=== PATIENT | female | born 1990 | race Caucasian/White ===

== ENCOUNTER 2016-07-09 16:50 | Observation (INO) | payer BC ==
[2016-07-09 17:59] VITALS: O2SAT 99
[2016-07-09 19:19] VITALS: BP 113/75; PULSE 88
== END 2016-07-09 18:45 | disposition home or self-care (01) ==
LOC: UNDOADMOB 16:50 → OB 16:50 → UNDODISOB 18:45
PROVIDERS: ADMIT Family Medicine; ATTEND Family Medicine
DX: Z34.03 Encounter for supervision of normal first pregnancy, third trimester (principal)
CPT/HCPCS: G0378

== ENCOUNTER 2016-07-11 10:06 | Observation (INO) | payer BC ==
[2016-07-11 10:33] VITALS: BP 108/64; PULSE 82
== END 2016-07-11 11:15 | disposition home or self-care (01) ==
LOC: OB 10:06
PROVIDERS: ADMIT Family Medicine; ATTEND Family Medicine
DX: Z34.02 Encounter for supervision of normal first pregnancy, second trimester (principal)
CPT/HCPCS: G0378

== ENCOUNTER 2016-08-07 21:00 | Observation (INO) | payer BC, SELFPAY ==
[2016-08-07 21:30] LABS: Bacteria FEW /HPF (NEGATIVE); COMPLETE URINE MICROSCOPIC? YES; Collection Type CLEAN CATCH; Epithelial Cells FEW /HPF (FEW); WBC 15-25 /HPF (0-5)
[2016-08-07] MEDS ORDERED: Rocephin 1000 MG INJ IM ONE (23:09)
[2016-08-07] MEDS ORDERED: XYLOCAINE 1% HCL 20 ML MDV IJ ONE (23:10)
[2016-08-07] MEDS ORDERED: Rocephin 1000 MG INJ ONE (23:25)
[2016-08-08 00:48] VITALS: BP 106/65; PULSE 90
== END 2016-08-08 00:15 | disposition home or self-care (01) ==
LOC: OB 21:00
PROVIDERS: ADMIT Family Medicine; ATTEND Family Medicine
DX: Z34.03 Encounter for supervision of normal first pregnancy, third trimester (principal)
CPT/HCPCS: 80307; 81000; 87086; 96372; G0378; J0696

== ENCOUNTER 2016-08-18 21:02 | Observation (INO) | payer BC, SELFPAY ==
[2016-08-18 21:50] LABS: Collection Type CLEAN CATCH
[2016-08-18 21:51] LABS: Bacteria FEW /HPF (NEGATIVE); COMPLETE URINE MICROSCOPIC? YES; Epithelial Cells FEW /HPF (FEW); Mucus SLIGHT /HPF (NEGATIVE)
[2016-08-19 01:43] VITALS: BP 107/70; PULSE 93
== END 2016-08-19 00:10 | disposition home or self-care (01) ==
LOC: OB 21:02
PROVIDERS: ADMIT Family Medicine; ATTEND Family Medicine
DX: Z34.83 Encounter for supervision of other normal pregnancy, third trimester (principal)
CPT/HCPCS: 80307; 81000; 87086; G0378

== ENCOUNTER 2016-09-01 22:03 | Observation (INO) | payer BC, SELFPAY ==
[2016-09-02 00:40] VITALS: BP 114/74; PULSE 80
== END 2016-09-01 23:59 | disposition home or self-care (01) ==
LOC: OB 22:03
PROVIDERS: ADMIT Family Medicine; ATTEND Family Medicine
DX: Z34.03 Encounter for supervision of normal first pregnancy, third trimester (principal)
CPT/HCPCS: 80307; G0378

== ENCOUNTER 2016-09-04 16:07 | Observation (INO) | payer BC, SELFPAY ==
[2016-09-04 16:51] VITALS: BP 128/82; PULSE 95
== END 2016-09-04 17:12 | disposition home or self-care (01) ==
LOC: OB 16:07
PROVIDERS: ADMIT Family Medicine; ATTEND Family Medicine
DX: Z34.03 Encounter for supervision of normal first pregnancy, third trimester (principal)
CPT/HCPCS: 59025; G0378

== ENCOUNTER 2016-09-17 19:30 | Observation (INO) | payer BC, SELFPAY ==
[2016-09-17 21:58] VITALS: BP 117/79; PULSE 98
== END 2016-09-17 21:10 | disposition home or self-care (01) ==
LOC: OB 19:30
PROVIDERS: ADMIT Family Medicine; ATTEND Family Medicine
DX: Z34.03 Encounter for supervision of normal first pregnancy, third trimester (principal)
CPT/HCPCS: G0378

== ENCOUNTER 2016-09-20 18:01 | Inpatient (IN) | payer BC, SELFPAY ==
[2016-09-20] MEDS ORDERED: Zofran 4 MG/2 ML VIAL IV PRN (19:33)
[2016-09-20 20:00] LABS: BASOPHIL % 0.1 % (0.0-0.4); Eosinophil % 0.5 % (0.00-5.0); Granulocytes % 75.4 % (36.0-66.0); Lymphocytes % 15.3 % (24.0-44.0); Mean Cell Volume 93.5 fl (78-100); Mean Platelet Volume 10.4 fl (6-9.5); Monocytes % 8.7 % (0.0-12.0); Platelet Count 259 K/mm3 (150-450); Red Blood Count 3.98 M/mm3 (4.1-5.4); Red Cell Distribution Width 13.7 % (11.5-14.0); White Blood Count 12.5 K/mm3 (4.0-10.5)
[2016-09-20] MEDS ORDERED: BRETHINE 1 MG/ML SQ PRN (20:03)
[2016-09-20 20:06] LABS: Mean Corpuscular Hemoglobin 31.1 pg (26-32)
[2016-09-20 20:53] VITALS: O2SAT 96
[2016-09-20] MEDS ORDERED: Cervidil 10 MG VAG SCH (22:00)
[2016-09-21] MEDS: TYLENOL EXTRA STRENGTH 500 MG PO PRN (01:08)
[2016-09-21] MEDS: Lactated Ringers 1,000 ML IV SCH ×2 (06:51→14:33)
[2016-09-21] MEDS ORDERED: Ephedrine Sulfate 50 MG/ML IV PRN (07:19)
[2016-09-21] MEDS ORDERED: OB EPIDURAL NAROPIN/SUFENTANIL IN NACL EPIDURAL PRN (07:19)
[2016-09-21] MEDS ORDERED: Lactated Ringers 1,000 ML IV ONE (07:19)
[2016-09-21] MEDS ORDERED: XYLOCAINE 1% HCL 20 ML MDV IJ PRN (07:20)
[2016-09-21] MEDS: PITOCIN 30 UNITS/ LR 500 ML 500 ML IV SCH ×2 (09:37→17:25)
[2016-09-21] MEDS ORDERED: Pepcid 20 MG PO ONE (09:37)
[2016-09-21] MEDS ORDERED: Mylicon 80MG PO PRN (17:11)
[2016-09-21] MEDS ORDERED: TUCKS TP PRN (17:11)
[2016-09-21] MEDS ORDERED: CORTISONE 1% CREAM TP PRN (17:11)
[2016-09-21] MEDS ORDERED: Tylenol #3 Tablet PO PRN (17:11)
[2016-09-21] MEDS ORDERED: Ambien 10 MG PO PRN (17:11)
[2016-09-21] MEDS ORDERED: Dermoplast Spray TP PRN (17:11)
[2016-09-21] MEDS ORDERED: Anucort-HC SUPPOSITORY PR PRN (17:11)
[2016-09-21] MEDS ORDERED: LANSINOH 40 GM TOP PRN (17:11)
[2016-09-21] MEDS ORDERED: TYLENOL EXTRA STRENGTH 500 MG PO PRN (17:11)
[2016-09-21] MEDS ORDERED: Dulcolax 10 MG SUPP PR PRN (17:11)
[2016-09-21] MEDS: MOTRIN 400 MG PO PRN (20:28)
[2016-09-21] MEDS: Colace 100 MG PO SCH (20:47)
[2016-09-22] MEDS: TYLENOL EXTRA STRENGTH 500 MG PO PRN (01:01)
[2016-09-22 05:24] LABS: Mean Cell Volume 94.4 fl (78-100); Mean Platelet Volume 10.5 fl (6-9.5); Platelet Count 225 K/mm3 (150-450); Red Blood Count 3.24 M/mm3 (4.1-5.4); Red Cell Distribution Width 13.9 % (11.5-14.0); White Blood Count 15.2 K/mm3 (4.0-10.5)
[2016-09-22 05:25] LABS: Mean Corpuscular Hemoglobin 31.1 pg (26-32)
[2016-09-22 06:05] LABS: BAND 2 % (0.0-2.0); Total Cells Counted 100
[2016-09-22 06:07] LABS: Platelet Estimate NORMAL (NORMAL)
[2016-09-22 06:08] LABS: Toxic Granulation 1+
[2016-09-22] MEDS: MOTRIN 400 MG PO PRN ×2 (09:32→19:30)
[2016-09-22] MEDS: FERREX 150 PO SCH (09:32)
[2016-09-22] MEDS: Colace 100 MG PO SCH ×2 (09:32→21:36)
[2016-09-23] MEDS: Colace 100 MG PO SCH (08:03)
[2016-09-23] MEDS: FERREX 150 PO SCH (08:03)
[2016-09-23] MEDS: MOTRIN 400 MG PO PRN (08:03)
[2016-09-23 08:26] VITALS: BP 121/80; PULSE 94
[2016-09-23] MEDS: TYLENOL EXTRA STRENGTH 500 MG PO PRN (16:54)
== END 2016-09-23 18:55 | disposition home or self-care (01) | DRG 775 ==
LOC: OB 18:01 → OBSVTOIN 09-21 06:39
PROVIDERS: ADMIT Family Medicine; ATTEND Family Medicine
PROC: 10E0XZZ Delivery of Products of Conception, External Approach (ICD-10-PCS; principal; 2016-09-21)
PROC: 0KQM0ZZ Repair Perineum Muscle, Open Approach (ICD-10-PCS; 2016-09-21)
DX: O70.1 Second degree perineal laceration during delivery (principal); Z37.0 Single live birth; Z3A.39 39 weeks gestation of pregnancy; D64.9 Anemia, unspecified
CPT/HCPCS: 01967; 36415; 80307; 85025; 87086; G0378; J2590; J2795; A9270-GY

== ENCOUNTER 2018-02-02 15:24 | Emergency (ER) | payer BC ==
[2018-02-02 15:43] VITALS: O2SAT 98
--- NOTE | 2018-02-02 16:20 | ERPHSYRPT ---
- History of Present Illness Time Seen by Provider: 02/02/18 16:11 Source: patient Exam Limitations: no limitations Patient Subjective Stated Complaint: here for sorethroat last night, runny nose , no abd pain or cramping Triage Nursing Assessment: pt alert, resp easy,skin w/d/p. no cough , took tylenol.pt threw up blood today bright red. but pt states she thinks its from throat Physician History: 28-year-old white female who states she is 2 para 126 weeks estimated gestational age. Arrives with complaint of a sore throat symptoms since last night she states she vomited one time no fevers she denies abdominal pain she denies urinary symptoms she has no back pain she has had a runny nose. Past medical history negative. Past surgical history negative. Social history patient denies tobacco alcohol or illicit drug use. Timing/Duration: today Severity: moderate Modifying Factors: Improves With: nothing Associated Symptoms: vomiting (x1), No nausea, No abdominal pain, No shortness of breath, No heartburn, No diaphoresis, No cough, No chills, No chest pain, No fever, No headaches, No loss of appetite, No malaise, No rash, No syncope, No seizure, No weakness Allergies/Adverse Reactions: No Known Drug Allergies Allergy (Verified 02/02/18 15:43) Home Medications: Vits W-Ca,Fe,FA(<1Mg) [] 1 each PO DAILY 04/12/16 [History] Verapamil HCl [Verapamil ER] 120 mg DAILY 02/02/18 [History] Hx Tetanus, Diphtheria Vaccination/Date Given: Yes Hx Influenza Vaccination/Date Given: No Hx Pneumococcal Vaccination/Date Given: No Immunizations Up to Date: Yes - Review of Systems Constitutional: No Fever, No Chills Eyes: No Symptoms Ears, Nose, & Throat: Throat Pain, Other (patient states she spit up a little blood thinks it came from her throat), No Ear Pain, No Ear Discharge, No Hearing Changes, No Tinnitus, No Nose Pain, No Nose Congestion, No Nose Discharge, No Sinus Drainage, No Epistaxis, No Mouth Pain, No Mouth Swelling, No Loose Teeth, No Throat Swelling, No Hoarse, No Painful Swallowing, No Snoring , No Stridor Cardiac: No Chest Pain, No Edema, No Syncope Abdominal/Gastrointestinal: No Symptoms, Vomiting (vomited times one), No Abdominal Pain, No Nausea, No Diarrhea, No Hematemesis Genitourinary Symptoms: (26 weeks ), No Dysuria Musculoskeletal: No Back Pain, No Neck Pain Skin: No Rash Neurological: No Dizziness, No Focal Weakness, No Sensory Changes Psychological: No Symptoms Endocrine: No Symptoms All Other Systems: Reviewed and Negative - Past Medical History Pertinent Past Medical History: No - Past Surgical History Past Surgical History: No - Social History Smoking Status: Never smoker Exposure to second hand smoke: No Drug Use: none Patient Lives Alone: No - Female History Hx Last Menstrual Period: august 2017 Hx Now: Yes Expected Date of Delivery: 05/21/18 Gestational Age: 26 - Nursing Vital Signs Nursing Vital Signs: Initial Vital Signs Temperature 98.2 F 02/02/18 15:37 Pulse Rate 95 H 02/02/18 15:37 Respiratory Rate 16 02/02/18 15:37 Blood Pressure 120/82 02/02/18 15:37 O2 Sat by Pulse Oximetry 98 02/02/18 15:37 Pain Scale Pain Intensity 2 - Physical Exam General Appearance: no apparent distress, alert Eye Exam: PERRL/EOMI, eyes nml inspection Ears, Nose, Throat Exam: TMs normal, moist mucous membranes, pharyngeal erythema , No pharynx normal (throat erythematous slight edema to uvula) Neck Exam: normal inspection, non-tender, supple, full range of motion Respiratory Exam: normal breath sounds Cardiovascular Exam: regular rate/rhythm, normal heart sounds, normal peripheral pulses Gastrointestinal/Abdomen Exam: soft, normal bowel sounds, other (ghravid abdomen ), No tenderness, No mass Back Exam: normal inspection, normal range of motion, No CVA tenderness, No vertebral tenderness Extremity Exam: normal inspection, normal range of motion, pelvis stable Neurologic Exam: alert, oriented x 3, cooperative, certified professional ergonomist II-XII nml as tested, normal mood/affect, nml cerebellar function, nml station & gait, sensation nml, No motor deficits Skin Exam: normal color, warm, dry, No rash SpO2 Interpretation: normal (98%) SpO2: 98 Oxygen Delivery: Room Air - Course Nursing assessment & vital signs reviewed: Yes Ordered Tests: Active Orders 24 hr Category Date Time Status Heart Tones-ED STAT Care 02/02/18 15:41 Active IV Insertion STAT Care 02/02/18 15:40 Active Medication Summary Discontinued Medications Generic Name Dose Route Start Last Admin Trade Name Karla PRN Reason Stop Dose Admin Diphenhydramine HCl 50 mg 02/02/18 18:39 Benadryl 25 Mg Capsule PO 02/02/18 18:40 STAT ONE Lab/Rad Data: Laboratory Results 02/02/18 Range/Units 16:20 Group A Strep Antibody NEGATIVE (NEGATIVE) - Progress Progress: improved Progress Note: 02/02/18 18:34 26-year-old white female arrives with complaint of soreness in her throat she states she vomited. On physical examination patient with mild uvular edema mild erythema. Airway is clear. Strep test is negative. Patient is 26 weeks . Will discuss case with Dr. Larios sap functional analyst for the patient's physician Dr. Verdin. Will go ahead and place patient on Benadryl And prednisone - Departure Time of Disposition: 18:36 Departure Disposition: Home Clinical Impression: Sore throat, Uvular edema, incidental 26 weeks EGA Condition: Fair Critical Care Time: No Referrals: NITZA VERDIN [Primary Care Provider] - Additional Instructions: Return home. Plenty of fluids. Benadryl 25-50 mg orally every 6 hours for one to 2 days. Prednisone 40 mg orally daily for 5 days. Follow-up with your family doctor or [facility] physician if problems. Return for acute distress or for severe symptoms. Prescriptions: Prednisone 20 mg [Deltasone 20 mg] 40 mg PO DAILY #10 tablet
[2018-02-02] MEDS ORDERED: BENADRYL 25 MG CAPSULE PO ONE (18:39)
[2018-02-02] MEDS ORDERED: DELTASONE 20 MG PO ONE (18:43)
[2018-02-02] MEDS ORDERED: BENADRYL 25 MG CAPSULE ONE (18:59)
[2018-02-02] MEDS ORDERED: DELTASONE 20 MG ONE (18:59)
[2018-02-02 19:04] VITALS: BP 112/69
[2018-02-02 19:21] VITALS: PULSE 98
== END 2018-02-02 19:21 | disposition home or self-care (01) ==
LOC: ED 15:24
DX: Z33.1 Pregnant state, incidental (principal)
CPT/HCPCS: 36000; 87651; 99284; A9270-GY

== ENCOUNTER 2018-04-02 20:23 | Observation (INO) | payer BC ==
[2018-04-02 20:58] LABS: Appearance CLOUDY (CLEAR); Bilirubin NEGATIVE (NEGATIVE); Blood SMALL Ery/ul (0-5); Glucose NEGATIVE (NEGATIVE); Ketones TRACE (NEGATIVE); Leukocyte Esterase MODERATE (NEGATIVE); Nitrite NEGATIVE (NEGATIVE); Protein,Urine Dip 30 (Negative); Urobilinogen 2 mg/dL (0-1)
[2018-04-02] MEDS ORDERED: Rocephin 1000 MG INJ IM ONE (21:41)
[2018-04-02] MEDS ORDERED: XYLOCAINE 1% HCL 20 ML MDV IJ ONE (21:56)
[2018-04-02] MEDS ORDERED: Rocephin 1000 MG INJ ONE (21:57)
[2018-04-02 23:28] VITALS: BP 103/68; PULSE 92
== END 2018-04-02 22:40 | disposition home or self-care (01) ==
LOC: OB 20:23
PROVIDERS: ADMIT Family Medicine; ATTEND Family Medicine
DX: Z34.83 Encounter for supervision of other normal pregnancy, third trimester (principal)
CPT/HCPCS: 81001; 87086; G0378; J0696

== ENCOUNTER 2018-04-09 12:51 | Observation (INO) | payer BC ==
[2018-04-09 13:32] VITALS: BP 122/62; PULSE 112
[2018-04-09 13:39] LABS: Appearance SLIGHTLY CLOUDY (CLEAR); Bilirubin NEGATIVE (NEGATIVE); Blood NEGATIVE Ery/ul (0-5); Glucose NEGATIVE (NEGATIVE); Ketones NEGATIVE (NEGATIVE); Leukocyte Esterase NEGATIVE (NEGATIVE); Nitrite NEGATIVE (NEGATIVE); Protein,Urine Dip NEGATIVE (Negative); Specific Gravity 1.013 (1.005-1.025); Urobilinogen NEGATIVE mg/dL (0-1)
== END 2018-04-09 14:45 | disposition home or self-care (01) ==
LOC: OB 12:51
PROVIDERS: ADMIT Family Medicine; ATTEND Family Medicine
DX: Z34.83 Encounter for supervision of other normal pregnancy, third trimester (principal)
CPT/HCPCS: 81001; G0378

== ENCOUNTER 2018-04-23 13:09 | Observation (INO) | payer BC ==
[2018-04-23 14:26] LABS: Appearance CLOUDY (CLEAR); Bilirubin NEGATIVE (NEGATIVE); Blood SMALL Ery/ul (0-5); Glucose NEGATIVE (NEGATIVE); Ketones TRACE (NEGATIVE); Leukocyte Esterase MODERATE (NEGATIVE); Nitrite NEGATIVE (NEGATIVE); Protein,Urine Dip 30 (Negative); Specific Gravity 1.013 (1.005-1.025); Urobilinogen NEGATIVE mg/dL (0-1)
[2018-04-23] MEDS ORDERED: Lactated Ringers 1,000 ML IV ONE (14:46)
[2018-04-23 15:42] LABS: BASOPHIL % 0.2 % (0.0-0.4); Basophil (Absolute #) 0.02 (0-0.4); Eosinophil % 0.6 % (0.00-5.0); Eosinophil (Absolute #) 0.06 (0-0.5); Granulocyte Absolute (ANC) 7.03 (1.4-6.9); Granulocytes % 70.5 % (36.0-66.0); Hematocrit 34.3 % (35-47); Hemoglobin 11.3 gm/dl (12.0-16.0); Lymphocyte (Absolute #) 2.09 (1.0-4.6); Mean Cell Volume 94.8 fl (78-100); Mean Corpuscular Hemoglobin 31.2 pg (26-32); Mean Corpuscular Hgb Concent. 32.9 g/dl (32-36); Mean Platelet Volume 10.1 fl (6-9.5); Monocyte (Absolute #) 0.77 (0.0-1.3); Monocytes % 7.7 % (0.0-12.0); Platelet Count 238 K/mm3 (150-450); Red Blood Count 3.62 M/mm3 (4.1-5.4); Red Cell Distribution Width 13.9 % (11.5-14.0)
[2018-04-23 16:16] LABS: ALBUMIN 3.3 g/dL (3.5-5.0); ALKALINE PHOSPHATASE 101 U/L (38-126); ANION GAP 12.4 MEQ/L (5-15); BLOOD UREA NITROGEN 6 mg/dL (7-17); CHLORIDE 106 mmol/L (98-107); Calcium 8.9 mg/dL (8.4-10.2); Carbon Dioxide 21 mmol/L (22-30); Creatinine 1 0.43 mg/dL (0.52-1.04); Glucose 106 mg/dL (74-106); Potassium 3.4 mmol/L (3.5-5.1); SGOT/AST 18 U/L (14-36); SGPT/ALT 14 U/L (0-35); SODIUM 137 mmol/L (137-145); Total Protein 6.5 g/dL (6.3-8.2)
[2018-04-23 16:32] VITALS: BP 102/56; PULSE 93
== END 2018-04-23 17:15 | disposition home or self-care (01) ==
LOC: OB 13:09
PROVIDERS: ADMIT Family Medicine; ATTEND Family Medicine
DX: Z34.83 Encounter for supervision of other normal pregnancy, third trimester (principal)
CPT/HCPCS: 36415; 80053; 81001; 85025; 87077; 87086; 87186; G0378

== ENCOUNTER 2018-04-25 11:06 | Observation (INO) | payer BC ==
[2018-04-25 12:09] LABS: Appearance CLOUDY (CLEAR); Bilirubin NEGATIVE (NEGATIVE); Blood NEGATIVE Ery/ul (0-5); Glucose NEGATIVE (NEGATIVE); Ketones NEGATIVE (NEGATIVE); Leukocyte Esterase MODERATE (NEGATIVE); Nitrite NEGATIVE (NEGATIVE); Protein,Urine Dip NEGATIVE (Negative); Specific Gravity 1.005 (1.005-1.025); Urobilinogen NEGATIVE mg/dL (0-1)
[2018-04-25] MEDS ORDERED: Lactated Ringers 1,000 ML IV ONE (13:07)
[2018-04-25] MEDS ORDERED: ROCEPHIN 1 Gm-D5w 50 ml Bag** 1 G/50 ML IVPB IV SCH (13:30)
[2018-04-25 15:55] VITALS: BP 107/73; PULSE 90
== END 2018-04-25 16:00 | disposition home or self-care (01) ==
LOC: OB 11:06
PROVIDERS: ADMIT Family Medicine; ATTEND Family Medicine
DX: Z34.83 Encounter for supervision of other normal pregnancy, third trimester (principal)
CPT/HCPCS: 81001; 87086; G0378; J0696

== ENCOUNTER 2018-05-13 08:39 | Inpatient (IN) | payer BC ==
[2018-05-13] MEDS ORDERED: BRETHINE 1 MG/ML SQ PRN (18:37)
[2018-05-13 20:15] LABS: BASOPHIL % 0.2 % (0.0-0.4); Basophil (Absolute #) 0.02 (0-0.4); Eosinophil % 0.5 % (0.00-5.0); Eosinophil (Absolute #) 0.05 (0-0.5); Granulocyte Absolute (ANC) 6.68 (1.4-6.9); Granulocytes % 70.8 % (36.0-66.0); Hematocrit 36.7 % (35-47); Lymphocyte (Absolute #) 1.82 (1.0-4.6); Lymphocytes % 19.3 % (24.0-44.0); Mean Cell Volume 95.6 fl (78-100); Mean Corpuscular Hgb Concent. 32.7 g/dl (32-36); Mean Platelet Volume 10.2 fl (6-9.5); Monocyte (Absolute #) 0.87 (0.0-1.3); Monocytes % 9.2 % (0.0-12.0); Platelet Count 240 K/mm3 (150-450); Red Blood Count 3.84 M/mm3 (4.1-5.4); Red Cell Distribution Width 13.8 % (11.5-14.0); White Blood Count 9.4 K/mm3 (4.0-10.5)
[2018-05-13 20:18] LABS: Mean Corpuscular Hemoglobin 31.2 pg (26-32)
[2018-05-13 21:07] LABS: Amphetamine,Urine NEGATIVE (NEGATIVE); Barbiturate,Urine NEGATIVE (NEGATIVE); Benzodiazepine,Urine NEGATIVE (NEGATIVE); Cocaine,Urine NEGATIVE (NEGATIVE); Methadone,Urine NEGATIVE (NEGATIVE); Opiate,Urine NEGATIVE (NEGATIVE); PCP,Urine NEGATIVE (NEGATIVE); THC,Urine NEGATIVE (NEGATIVE)
[2018-05-13] MEDS ORDERED: Cervidil 10 MG VAG SCH (22:00)
[2018-05-13] MEDS ORDERED: Lactated Ringers 1,000 ML IV ONE (23:19)
[2018-05-13] MEDS: Lactated Ringers 1,000 ML IV SCH (23:23)
[2018-05-13] MEDS ORDERED: Zofran 4 MG/2 ML VIAL ONE (23:46)
[2018-05-13] MEDS: Zofran 4 MG/2 ML VIAL IV PRN (23:51)
[2018-05-14] MEDS: Lactated Ringers 1,000 ML IV SCH ×3 (01:49→10:16)
[2018-05-14] MEDS: Zofran 4 MG/2 ML VIAL IV PRN (07:12)
[2018-05-14] MEDS ORDERED: Ephedrine Sulfate 50 MG/ML IV PRN (08:40)
[2018-05-14] MEDS ORDERED: Lactated Ringers 1,000 ML IV ONE (08:40)
[2018-05-14] MEDS ORDERED: OB EPIDURAL NAROPIN/SUFENTANIL IN NACL EPIDURAL PRN (08:40)
[2018-05-14] MEDS ORDERED: PROTONIX 40 MG IV IV ONE (08:42)
[2018-05-14] MEDS ORDERED: PITOCIN 30 UNITS/ LR 500 ML 500 ML IV SCH (10:30)
[2018-05-14] MEDS ORDERED: XYLOCAINE 1% HCL 20 ML MDV ONE (14:14)
[2018-05-14] MEDS ORDERED: XYLOCAINE 1% HCL 20 ML MDV IJ PRN (14:30)
[2018-05-14] MEDS ORDERED: CORTISONE 1% CREAM TP PRN (15:10)
[2018-05-14] MEDS ORDERED: Mylicon 80MG PO PRN (15:10)
[2018-05-14] MEDS ORDERED: Restoril 15 MG PO PRN (15:10)
[2018-05-14] MEDS ORDERED: LANSINOH 40 GM TOP PRN (15:10)
[2018-05-14] MEDS ORDERED: Dulcolax 10 MG SUPP PR PRN (15:10)
[2018-05-14] MEDS ORDERED: NORCO 5/325 MG PO PRN (15:10)
[2018-05-14] MEDS ORDERED: Ambien 10 MG PO PRN (15:10)
[2018-05-14] MEDS ORDERED: TUCKS TP PRN (15:10)
[2018-05-14] MEDS ORDERED: Dermoplast Spray TP PRN (15:10)
[2018-05-14] MEDS: MOTRIN 400 MG PO PRN (18:33)
[2018-05-14] MEDS: TYLENOL EXTRA STRENGTH 500 MG PO PRN (21:32)
[2018-05-14] MEDS: Colace 100 MG PO SCH (21:32)
[2018-05-15] MEDS: MOTRIN 400 MG PO PRN ×2 (05:20→15:17)
[2018-05-15 05:37] LABS: BASOPHIL % 0.2 % (0.0-0.4); Basophil (Absolute #) 0.02 (0-0.4); Eosinophil % 0.3 % (0.00-5.0); Eosinophil (Absolute #) 0.03 (0-0.5); Granulocyte Absolute (ANC) 8.04 (1.4-6.9); Granulocytes % 67.3 % (36.0-66.0); Hematocrit 33.4 % (35-47); Hemoglobin 10.8 gm/dl (12.0-16.0); Lymphocytes % 22.6 % (24.0-44.0); Mean Cell Volume 98.2 fl (78-100); Mean Corpuscular Hgb Concent. 32.3 g/dl (32-36); Mean Platelet Volume 10.2 fl (6-9.5); Monocyte (Absolute #) 1.14 (0.0-1.3); Monocytes % 9.6 % (0.0-12.0); Platelet Count 212 K/mm3 (150-450); Red Cell Distribution Width 14.2 % (11.5-14.0); White Blood Count 11.9 K/mm3 (4.0-10.5)
[2018-05-15 05:44] LABS: Mean Corpuscular Hemoglobin 31.7 pg (26-32)
[2018-05-15] MEDS: FERREX 150 PO SCH (10:49)
[2018-05-15] MEDS: Colace 100 MG PO SCH ×2 (10:50→20:01)
[2018-05-15] MEDS: TYLENOL EXTRA STRENGTH 500 MG PO PRN ×2 (10:51→20:01)
[2018-05-15] MEDS: THERAGRAN MULTIVITAMIN PO SCH (16:31)
[2018-05-15] MEDS: ISOPTIN S.R. 240 MG PO SCH (16:32)
[2018-05-16] MEDS: MOTRIN 400 MG PO PRN (04:09)
--- NOTE | 2018-05-16 08:45 | PCM.DS ---
Discharge Summary Date of Admission: 05/14/18 08:39 Admitting Physician: NITZA BROWN Consults: Consults on Case 05/14/18 08:41 Notify Anesthesia Provider PRN Primary Care Provider: NITZA BROWN Allergies Allergies No Known Drug Allergies Allergy (Verified 04/09/18 14:45) Hospital Summary - Hospital Course Hospital Course: Pt was admitted as at 39+ weeks who was induced. Delivered 7lb 7oz baby, for full details see delivery note. During she was found to have an elevated urine protein, but her bp were all well controlled. BP have been normal here. She is having bleeding like a heavy period, no clots. no dizziness upon standing. Sugar po well. Ready to d/c home today. Pain well controlled on ibuprofen and tylenol. - Vitals & Intake/Output Vital Signs: Vital Signs Temperature 97.9 F 05/16/18 02:00 Pulse Rate 74 05/16/18 02:00 Respiratory Rate 18 05/16/18 02:00 Blood Pressure 120/74 05/16/18 02:00 O2 Sat by Pulse Oximetry Oxygen-Last Documented O2 Percentage 100% Intake & Output: Intake & Output 05/13/18 05/14/18 05/15/18 05/16/18 11:59 11:59 11:59 11:59 Intake Total 2000 41980 Output Total 300 850 Balance 1700 9270 Weight 86.183 kg - Lab Result Diagrams: 05/15/18 05:16 - Procedures and Test Procedures and Tests throughout Hospitalization: Therapy Orders & Screens 05/14/18 14:16 Standby Routine Comment: Diagnosis: Term IUP Discharge Exam General Appearance: no apparent distress, alert Neurologic Exam: oriented x 3, cooperative, other (pat refl 2+ bilat. no clonus bilat.) Skin Exam: normal color, warm, dry, No rash Respiratory Exam: normal breath sounds, lungs clear, No crackles/rales, No rhonchi, No wheezing Cardiovascular Exam: regular rate/rhythm, normal heart sounds, No murmur Gastrointestinal/Abdomen Exam: soft, normal bowel sounds, other (fundus firm just superior to umbilicus.), No tenderness Extremity Exam: normal inspection, No pedal edema, No swelling Final Diagnosis/Problem List - Final Discharge Diagnosis/Problem (1) Vaginal delivery Current Visit: No Status: Acute Assessment & Plan: Doing great, PPD #2 toay. home. - Discharge Disposition: Home, Self-Care Condition: Good Prescriptions: New Ibuprofen 600 mg PO TID PRN #35 tablet PRN Reason: Pain Continue Vits W-Ca,Fe,FA(<1Mg) [] 1 each PO DAILY Verapamil HCl [Verapamil ER] 120 mg DAILY Follow up with: NITZA BROWN [Primary Care Provider] - 1 Week
[2018-05-16] MEDS ORDERED: NON-FORMULARY ITEM (Prenatal Vits W-Ca,Fe,Fa(<1mg) [Prenatal] 1 EACH) PO SCH (10:00)
[2018-05-16] MEDS: FERREX 150 PO SCH (10:19)
[2018-05-16] MEDS: Colace 100 MG PO SCH (10:19)
[2018-05-16] MEDS: ISOPTIN S.R. 240 MG PO SCH (10:20)
[2018-05-16] MEDS: THERAGRAN MULTIVITAMIN PO SCH (10:20)
[2018-05-16 13:53] VITALS: BP 132/90; PULSE 93
== END 2018-05-16 13:45 | disposition home or self-care (01) | DRG 807 ==
LOC: OB 08:39 → UNDOADMOB 18:20 → OBSVTOIN 05-14 08:39 → INTOOBSV 05-14 08:39
PROVIDERS: ADMIT Family Medicine; ATTEND Family Medicine
PROC: 10E0XZZ Delivery of Products of Conception, External Approach (ICD-10-PCS; principal; 2018-05-14)
DX: O80 Encounter for full-term uncomplicated delivery (principal); Z37.0 Single live birth; Z3A.39 39 weeks gestation of pregnancy
CPT/HCPCS: 36415; 80307; 85025; 94799; G0378; J2405; J2590; J2795; A9270-GY

== ENCOUNTER 2022-04-21 22:51 | Emergency (ER) | payer BC ==
[2022-04-21 23:28] LABS: Appearance CLOUDY (CLEAR); Bilirubin SMALL (NEGATIVE); Dipstick done @ ? MAIN LAB; Glucose NEGATIVE (NEGATIVE); Ketones MODERATE-40 (NEGATIVE); Nitrite POSITIVE (NEGATIVE); Ph 5.5 (5-6); Protein,Urine Dip 100 (Negative); RBC LARGE Ery/ul (0-5); Specific Gravity 1.025 (1.005-1.025); Urobilinogen 1 mg/dL (0-1)
[2022-04-21 23:35] LABS: Epithelial Cells FEW /HPF (FEW); Mucus SLIGHT /HPF (NEGATIVE); WBC >100 /HPF (0-5)
[2022-04-21 23:42] LABS: Bacteria MODERATE /HPF (NEGATIVE); Budding Yeast Moderate /HPF (NEGATIVE); RBC >101 /HPF (0-2); Urine Cultured Indicated? YES
[2022-04-21] MEDS ORDERED: Rocephin 1000 MG INJ IM ONE (23:44)
--- NOTE | 2022-04-21 23:44 | ERPHSYRPT ---
- History of Present Illness Time Seen by Provider: 04/21/22 23:41 Source: patient Exam Limitations: no limitations Patient Subjective Stated Complaint: pt states she has been feeling achy and congested since yesterday, generally sore all over, nauseated, productive cough Triage Nursing Assessment: pt is alert and oriented, fever is 100.1, elevated heart rate of 121. Physician History: This is a 32-year-old white female patient of Dr. Devang Degroot who presents with 1 day history of generalized achiness, fever, mild cough and nausea. She has no known exposure to individuals with same symptoms or with viral illness. She does not have chest pain. She has had no vomiting or diarrhea. Timing/Duration: yesterday Cough Quality/Degree: mild Possible Cause: no prior episodes Modifying Factors: Improves With: coughing Associated Symptoms: fever, cough, muscle aches, sore throat, No chest pain/soreness Allergies/Adverse Reactions: No Known Drug Allergies Allergy (Verified 04/09/18 14:45) Home Medications: Vits W-Ca,Fe,FA(<1Mg) [] 1 each PO DAILY 04/12/16 [History] Verapamil HCl [Verapamil ER] 120 mg DAILY 02/02/18 [History] Hx Tetanus, Diphtheria Vaccination/Date Given: Yes Hx Influenza Vaccination/Date Given: No Hx Pneumococcal Vaccination/Date Given: No Travel Risk - International Travel Have you traveled outside of the country in past 3 weeks: No - Coronavirus Screening Are you exhibiting any of the following symptoms?: Yes Symptoms: Fever, Cough: New Onset, Headaches/Body Aches/Fatigue Close contact with a COVID-19 positive Pt in past 14-21 Days: No - Vaccine Status Have you recieved a Covid-19 vaccination: No - Review of Systems Constitutional: Fever Eyes: No Symptoms Ears, Nose, & Throat: Throat Pain Respiratory: Cough Cardiac: No Symptoms Abdominal/Gastrointestinal: Nausea, No Abdominal Pain, No Vomiting, No Diarrhea, No Constipation Genitourinary Symptoms: No Symptoms Musculoskeletal: Arthralgias, Myalgias Skin: No Symptoms Neurological: No Symptoms Psychological: No Symptoms Endocrine: No Symptoms Hematologic/Lymphatic: No Symptoms Immunological/Allergic: No Symptoms All Other Systems: Reviewed and Negative - Past Medical History Pertinent Past Medical History: Yes Neurological History: Migraines ENT History: No Pertinent History Cardiac History: No Pertinent History Respiratory History: No Pertinent History Endocrine Medical History: No Pertinent History Musculoskeletal History: No Pertinent History GI Medical History: No Pertinent History History: No Pertinent History Psycho-Social History: No Pertinent History Female Reproductive Disorders: No Pertinent History - Past Surgical History Past Surgical History: No - Social History Smoking Status: Never smoker Exposure to second hand smoke: No Drug Use: none Patient Lives Alone: No - Female History Hx Last Menstrual Period: 04/21/22 Hx Now: No - Nursing Vital Signs Nursing Vital Signs: Initial Vital Signs Temperature 100.6 F 04/21/22 22:52 Pulse Rate 125 H 04/21/22 22:52 Respiratory Rate 18 04/21/22 22:52 Blood Pressure 120/74 04/21/22 22:52 O2 Sat by Pulse Oximetry 96 04/21/22 22:52 Pain Scale Pain Intensity 7 - Physical Exam General Appearance: no apparent distress, alert, anxiety Eye Exam: PERRL/EOMI, eyes nml inspection Ears, Nose, Throat Exam: normal ENT inspection, moist mucous membranes Neck Exam: normal inspection, non-tender, supple, full range of motion Respiratory Exam: normal breath sounds, lungs clear, airway intact, No chest tenderness, No respiratory distress Cardiovascular Exam: tachycardia Gastrointestinal/Abdomen Exam: soft, normal bowel sounds, No tenderness Pelvic Exam: not done Rectal Exam: not done Back Exam: normal inspection, normal range of motion, No CVA tenderness, No vertebral tenderness Extremity Exam: normal inspection, normal range of motion, pelvis stable Neurologic Exam: alert, oriented x 3, cooperative, ceo and president II-XII nml as tested, normal mood/affect, nml cerebellar function, nml station & gait, sensation nml Skin Exam: normal color, warm, dry Lymphatic Exam: No adenopathy SpO2 Interpretation: normal SpO2: 96 O2 Delivery: Room Air - Course Nursing assessment & vital signs reviewed: Yes Ordered Tests: Active Orders 24 hr Category Date Time Status CHEST 1 VIEW (PORTABLE) Stat Exams 04/21/22 23:06 Taken CULTURE,URINE Stat Lab 04/21/22 23:08 Received HCG,QUALITATIVE URINE Stat Lab 04/21/22 23:08 Completed UA W/RFX CULTURE Stat Lab 04/21/22 23:08 Completed Medication Summary Discontinued Medications Generic Name Dose Route Start Last Admin Trade Name Freq PRN Reason Stop Dose Admin Ceftriaxone Sodium 1,000 mg 04/21/22 23:44 04/21/22 23:53 Ceftriaxone Sodium 1000 Mg Inj Vial IM 04/21/22 23:45 1,000 mg STAT ONE Administration Ceftriaxone Sodium Confirm 04/21/22 23:51 Ceftriaxone Sodium 1000 Mg Inj Vial Administered 04/21/22 23:52 Dose 1,000 mg .ROUTE .STK-MED ONE Ibuprofen 600 mg 04/21/22 23:45 04/21/22 23:53 Ibuprofen 600 Mg Tablet PO 04/21/22 23:46 600 mg STAT ONE Administration Ibuprofen Confirm 04/21/22 23:51 Ibuprofen 600 Mg Tablet Administered 04/21/22 23:52 Dose 600 mg .ROUTE .STK-MED ONE Ondansetron HCl 4 mg 04/21/22 23:45 04/21/22 23:53 Zofran 4 Mg/Udtablet Orally Disintegrating PO 04/21/22 23:46 4 mg STAT ONE Administration Ondansetron HCl Confirm 04/21/22 23:51 Zofran 4 Mg/Udtablet Orally Disintegrating Administered 04/21/22 23:52 Dose 4 mg .ROUTE .STK-MED ONE Lab/Rad Data: Laboratory Results 04/21/22 04/21/22 04/21/22 Range/Units 23:15 23:15 23:08 Urinalys Dipstick Clnc Urine Color (YELLOW) Urine Appearance (CLEAR) Urine pH (5-6) Ur Specific [place] (1.005-1.025) POC Urine Protein Conf (Negative) Urine Ketones (NEGATIVE) Urine Nitrite (NEGATIVE) Urine Bilirubin (NEGATIVE) Urine Urobilinogen (0-1) mg/dL Urine Leukocytes (NEGATIVE) Urine WBC (Auto) (0-5) /HPF Urine RBC (Auto) (0-2) /HPF U Epithel Cells (Auto) (FEW) /HPF Urine Bacteria (Auto) (NEGATIVE) /HPF Urine RBC (0-5) Gar[place]/ul Urine Mucus (Auto) (NEGATIVE) /HPF Urine Yeast (Budding) (NEGATIVE) /HPF Ur Culture Indicated? Urine Glucose (NEGATIVE) mg/dL Urine HCG, Qual NEGATIVE (Negative) Influenza Type A Ag NEGATIVE (NEGATIVE) Influenza Type B Ag NEGATIVE (NEGATIVE) RSV (PCR) NEGATIVE (Negative) SARS-CoV-2 (PCR) POSITIVE A (NEGATIVE) Group A Strep Antibody NOT DETECTED (NEGATIVE) 04/21/22 Range/Units 23:08 Urinalys Dipstick Clnc MAIN LAB Urine Color RED A (YELLOW) Urine Appearance CLOUDY A (CLEAR) Urine pH 5.5 (5-6) Ur Specific [place] 1.025 (1.005-1.025) POC Urine Protein Conf 100 A (Negative) Urine Ketones MODERATE-40 A (NEGATIVE) Urine Nitrite POSITIVE A (NEGATIVE) Urine Bilirubin SMALL A (NEGATIVE) Urine Urobilinogen 1 A (0-1) mg/dL Urine Leukocytes TRACE A (NEGATIVE) Urine WBC (Auto) >100 A (0-5) /HPF Urine RBC (Auto) >101 A (0-2) /HPF U Epithel Cells (Auto) FEW (FEW) /HPF Urine Bacteria (Auto) MODERATE A (NEGATIVE) /HPF Urine RBC LARGE A (0-5) [place]/ul Urine Mucus (Auto) SLIGHT A (NEGATIVE) /HPF Urine Yeast (Budding) Moderate A (NEGATIVE) /HPF Ur Culture Indicated? YES Urine Glucose NEGATIVE (NEGATIVE) mg/dL Urine HCG, Qual (Negative) Influenza Type A Ag (NEGATIVE) Influenza Type B Ag (NEGATIVE) RSV (PCR) (Negative) SARS-CoV-2 (PCR) (NEGATIVE) Group A Strep Antibody (NEGATIVE) - Progress Progress: improved, re-examined Air Movement: good Progress Note: 04/22/22 00:08 X-ray shows no acute cardiopulmonary process. Blood Culture(s) Obtained: Yes Antibiotics given: Yes Counseled pt/family regarding: lab results, diagnosis, need for follow-up, rad results - Departure Departure Disposition: Home Clinical Impression: Mild dehydration, Fever, UTI (urinary tract infection), COVID-19 virus infectio n Condition: Stable Critical Care Time: No Referrals: NITZA DUMONT [Primary Care Provider] - Follow up/PCP as directed Additional Instructions: Drink plenty of clear liquids. Use ibuprofen 600 mg orally every 6 hours with food for pain and fever control. Use the hydrocodone elixir for cough control. Do not start plain Tylenol for pain and fever control until you complete the hydrocodone elixir. Take your antibiotics as prescribed. Quarantine yourself per your employer's protocol if you are working. Prescriptions: Ondansetron ODT 4 MG [Zofran Odt 4 mg] 4 mg PO Q6H PRN PRN #10 tablet PRN Reason: Vomiting Hydrocodone/Acetaminophen [Hydrocodone-Acetamn 7.5-325/15] 10 ml PO Q8H PRN PRN #120 ml MDD 30 ml PRN Reason: Cough Cefdinir 300 mg PO BID #14 cap
[2022-04-21] MEDS ORDERED: ZOFRAN ODT 4 MG PO ONE (23:45)
[2022-04-21] MEDS ORDERED: MOTRIN 600 MG PO ONE (23:45)
[2022-04-21] MEDS ORDERED: Rocephin 1000 MG INJ ONE (23:51)
[2022-04-21] MEDS ORDERED: MOTRIN 600 MG ONE (23:51)
[2022-04-21] MEDS ORDERED: ZOFRAN ODT 4 MG ONE (23:51)
[2022-04-21 23:56] LABS: INFLUENZA A NEGATIVE (NEGATIVE); INFLUENZA B NEGATIVE (NEGATIVE); RESPIRATORY SYNCTIAL VIRUS NEGATIVE (Negative)
[2022-04-22 00:09] VITALS: O2SAT 96
[2022-04-22 00:23] LABS: SARS-CoV-2 Xpert Express POSITIVE (NEGATIVE)
[2022-04-22] MEDS ORDERED: HYDROCODONE-ACETAMIN 2.5-108/5 ML SOLUTION PO STA (00:25)
[2022-04-22] MEDS ORDERED: HYDROCODONE-ACETAMIN 2.5-108/5 ML SOLUTION ONE (00:32)
[2022-04-22 00:53] VITALS: BP 113/69; PULSE 69
--- NOTE | 2022-04-22 08:47 | XRAY ---
Indication: Cough. Flu like symptoms Comparison: None Portable chest demonstrates normal heart, lungs, and bony thorax.
== END 2022-04-22 00:53 | disposition home or self-care (01) ==
LOC: ED 22:51
DX: U07.1 COVID-19 (principal); N39.0 Urinary tract infection, site not specified; E86.0 Dehydration; R50.9 Fever, unspecified; M79.10 Myalgia, unspecified site; R05.1 Acute cough; R11.0 Nausea; Z79.891 Long term (current) use of opiate analgesic; Z79.899 Other long term (current) drug therapy; Z28.310 Unvaccinated for COVID-19
CPT/HCPCS: 0241U; 71045; 81015; 81025; 87086; 87651; 96372; 99283; J0696; Q0162; A9270-GY

== ENCOUNTER 2022-11-28 15:12 | Emergency (ER) | payer BC ==
--- NOTE | 2022-11-28 15:16 | ERPHSYRPT ---
- History of Present Illness Time Seen by Provider: 11/28/22 15:16 Source: patient Exam Limitations: no limitations Allergies/Adverse Reactions: No Known Drug Allergies Allergy (Verified 04/09/18 14:45) Home Medications: Vits W-Ca,Fe,FA(<1Mg) [] 1 each PO DAILY 04/12/16 [History] Verapamil HCl [Verapamil ER] 120 mg DAILY 02/02/18 [History] Hx Tetanus, Diphtheria Vaccination/Date Given: Yes Hx Influenza Vaccination/Date Given: No Hx Pneumococcal Vaccination/Date Given: No Travel Risk - Vaccine Status Have you recieved a Covid-19 vaccination: No - Past Medical History Pertinent Past Medical History: Yes Neurological History: Migraines ENT History: No Pertinent History Cardiac History: No Pertinent History Respiratory History: No Pertinent History Endocrine Medical History: No Pertinent History Musculoskeletal History: No Pertinent History GI Medical History: No Pertinent History History: No Pertinent History Psycho-Social History: No Pertinent History Female Reproductive Disorders: No Pertinent History - Past Surgical History Past Surgical History: No - Social History Smoking Status: Never smoker Exposure to second hand smoke: No Drug Use: none Patient Lives Alone: No - Departure Referrals: NITZA DUMONT [Primary Care Provider] - Follow up/PCP as directed
== END 2022-11-28 15:47 | disposition left against medical advice (07) ==
LOC: ED 15:12
DX: Z53.21 Procedure and treatment not carried out due to patient leaving prior to being seen by health care provider (principal)
CPT/HCPCS: 99281